=== PATIENT | female | born 1955 | race Two or more races ===

== ENCOUNTER 2023-01-06 12:42 | Inpatient (IN) | payer OTHER, BC ==
[2023-01-06 13:08] VITALS: BMI 26.6
[2023-01-06] MEDS ORDERED: IBUPROFEN 400 MG TABLET (FP) PO PRN (13:59)
[2023-01-06] MEDS ORDERED: guaiFENesin 600 MG TABLET.ER (FP) PO PRN (13:59)
[2023-01-06] MEDS ORDERED: ACETAMINOPHEN 325 MG TABLET (FP) PO PRN (13:59)
[2023-01-06] MEDS ORDERED: NALOXONE HCL (KLOXXADO) 8 MG SPRAY NS PRN (13:59)
[2023-01-06] MEDS ORDERED: POLYETHYLENE GLYCOL (HEALTHYLAX) 3350 17 GM PACKET PO PRN (13:59)
[2023-01-06] MEDS ORDERED: LOPERAMIDE HCL 2 MG CAPSULE PO PRN (13:59)
[2023-01-06] MEDS ORDERED: BENZONATATE 200 MG CAPSULE PO PRN (13:59)
[2023-01-06] MEDS ORDERED: IBUPROFEN 600 MG TABLET (FP) PO PRN (13:59)
[2023-01-06] MEDS ORDERED: MAG HYDROX/AL HYDROX/SIMETH 30 ML UNIT-DOSE CUP PO PRN (13:59)
[2023-01-06] MEDS ORDERED: NICOTINE POLACRILEX 4 MG GUM BUC PRN (13:59)
[2023-01-06] MEDS ORDERED: BENZOCAINE/MENTHOL (CHLORASEPTIC ) LOZENGE MM PRN (13:59)
[2023-01-06] MEDS ORDERED: NALOXONE HCL 0.4 MG/ML VIAL IM PRN (13:59)
[2023-01-06] MEDS ORDERED: COLLOIDAL OATMEAL 1 BAR EACH TP PRN (13:59)
[2023-01-06] MEDS ORDERED: MAGNESIUM HYDROX 2400MG/30ML ORAL SUSPENSION 30 ML CUP PO PRN (13:59)
[2023-01-06] MEDS ORDERED: ALBUTEROL SO4 HFA INHALER IH PRN (15:03)
[2023-01-06] MEDS: NICOTINE 21 MG/24 HOURS TOPICAL PATCH TD SCH (17:33)
[2023-01-06] MEDS: PRENATAL VITAMINS W/ FOLIC ACID TABLET (FP) PO SCH (17:33)
[2023-01-06] MEDS: MECLIZINE HCL 25 MG TABLET (FP) PO SCH ×2 (18:01→21:26)
[2023-01-06] MEDS: THIAMINE HCL 100 MG TABLET (FP) PO SCH (21:24)
[2023-01-06] MEDS: QUEtiapine FUMARATE 100 MG TABLET (FP) PO SCH (21:24)
[2023-01-06] MEDS: ATORVASTATIN CA 20 MG TABLET (FP) PO SCH (21:24)
[2023-01-06] MEDS: propRANOLol HCL 10 MG TABLET PO SCH (21:24)
[2023-01-06] MEDS: MELATONIN 5 MG TABLETS PO SCH (21:25)
[2023-01-07] MEDS: PRENATAL VITAMINS W/ FOLIC ACID TABLET (FP) PO SCH (10:05)
[2023-01-07] MEDS: amLODIPine BESYLATE 5 MG TABLET (FP) PO SCH (10:05)
[2023-01-07] MEDS: propRANOLol HCL 10 MG TABLET PO SCH ×3 (10:05→23:22)
[2023-01-07] MEDS: predniSONE 20 MG TABLET (UD) PO SCH (10:05)
[2023-01-07] MEDS: MECLIZINE HCL 25 MG TABLET (FP) PO SCH ×4 (10:05→21:09)
[2023-01-07] MEDS: NICOTINE 21 MG/24 HOURS TOPICAL PATCH TD SCH (10:06)
[2023-01-07 10:15] LABS: CHLORIDE 110 mmol/L (98-107); POTASSIUM 4.3 mmol/L (3.5-5.1); SODIUM 140 mmol/L (136-145)
[2023-01-07 10:25] LABS: ANION GAP 5 mmol/L (4-13); BLOOD UREA NITROGEN 11.8 mg/dL (7-18); CALCIUM 8.6 mg/dL (8.5-10.1); CO2 25 mmol/L (21-32); GLUCOSE,RANDOM 111 mg/dL (74-106)
[2023-01-07 10:26] LABS: ALBUMIN 3.2 g/dl (3.4-5.0)
[2023-01-07 10:28] LABS: CREATININE 0.9 mg/dL (0.55-1.3); SGOT/AST 23 U/L (15-37); SGPT/ALT 34 U/L (13-61)
[2023-01-07 10:30] LABS: BILIRUBIN,TOTAL 0.8 mg/dL (0.2-1); TOT PROT 6.2 g/dl (6.4-8.2)
[2023-01-07 10:31] LABS: ALK PHOS 107 U/L (45-117)
[2023-01-07 10:39] LABS: HEMATOCRIT 40.2 % (32.4-45.2); HEMOGLOBIN 13.2 GM/dL (10.7-15.3); MCH 28.1 pg (25.7-33.7); MCHC 32.9 g/dl (32.0-36.0); MEAN CELL VOLUME 85.5 fl (80-96); MEAN PLT VOLUME 8.3 fl (7.5-11.1); PLATELET COUNT 306 10^3/uL (134-434); RDW 15.6 % (11.6-15.6); WHITE BLOOD COUNT 8.4 K/mm3 (4.0-10.0)
[2023-01-07 11:39] LABS: SYPHILIS W/ RPR CONF NON-REACTIVE (NONREACTIVE)
[2023-01-07 14:09] LABS: URINE APPEARANCE CLEAR; URINE BILIRUBIN NEGATIVE (NEGATIVE); URINE COLOR YELLOW; URINE GLUCOSE (UA) NEGATIVE (NEGATIVE); URINE KETONE TRACE (NEGATIVE); URINE LEUK ESTERASE NEGATIVE (NEGATIVE); URINE NITRITE NEGATIVE (NEGATIVE); URINE PROTEIN NEGATIVE (NEGATIVE); URINE UROBILINOGEN 0.2 mg/dL (0.2-1.0)
[2023-01-07] MEDS: ATORVASTATIN CA 20 MG TABLET (FP) PO SCH (21:08)
[2023-01-07] MEDS: QUEtiapine FUMARATE 100 MG TABLET (FP) PO SCH (21:08)
[2023-01-07] MEDS: THIAMINE HCL 100 MG TABLET (FP) PO SCH (21:08)
[2023-01-07] MEDS: MELATONIN 5 MG TABLETS PO SCH (21:08)
[2023-01-08] MEDS: propRANOLol HCL 10 MG TABLET PO SCH ×3 (06:06→22:27)
[2023-01-08] MEDS: hydrOXYzine PAMOATE 25 MG CAPSULE (FP) PO PRN (07:02)
[2023-01-08] MEDS: amLODIPine BESYLATE 5 MG TABLET (FP) PO SCH (09:48)
[2023-01-08] MEDS: MECLIZINE HCL 25 MG TABLET (FP) PO SCH ×4 (09:48→21:15)
[2023-01-08] MEDS: predniSONE 20 MG TABLET (UD) PO SCH (09:48)
[2023-01-08] MEDS: PRENATAL VITAMINS W/ FOLIC ACID TABLET (FP) PO SCH (09:49)
[2023-01-08] MEDS: NICOTINE 21 MG/24 HOURS TOPICAL PATCH TD SCH (09:50)
[2023-01-08] MEDS: QUEtiapine FUMARATE 100 MG TABLET (FP) PO SCH (21:15)
[2023-01-08] MEDS: MELATONIN 5 MG TABLETS PO SCH (21:15)
[2023-01-08] MEDS: ATORVASTATIN CA 20 MG TABLET (FP) PO SCH (21:15)
[2023-01-08] MEDS: THIAMINE HCL 100 MG TABLET (FP) PO SCH (21:15)
[2023-01-09] MEDS: propRANOLol HCL 10 MG TABLET PO SCH ×3 (07:03→21:40)
[2023-01-09] MEDS: PRENATAL VITAMINS W/ FOLIC ACID TABLET (FP) PO SCH (09:43)
[2023-01-09] MEDS: NICOTINE 21 MG/24 HOURS TOPICAL PATCH TD SCH (09:44)
[2023-01-09] MEDS: predniSONE 20 MG TABLET (UD) PO SCH (09:44)
[2023-01-09] MEDS: MECLIZINE HCL 25 MG TABLET (FP) PO SCH ×4 (09:44→22:24)
[2023-01-09] MEDS: amLODIPine BESYLATE 5 MG TABLET (FP) PO SCH (09:45)
[2023-01-09] MEDS: ATORVASTATIN CA 20 MG TABLET (FP) PO SCH (21:40)
[2023-01-09] MEDS: THIAMINE HCL 100 MG TABLET (FP) PO SCH (21:40)
[2023-01-09] MEDS: QUEtiapine FUMARATE 100 MG TABLET (FP) PO SCH (21:40)
[2023-01-09] MEDS: MELATONIN 5 MG TABLETS PO SCH (21:40)
[2023-01-10] MEDS: propRANOLol HCL 10 MG TABLET PO SCH ×3 (06:18→21:21)
[2023-01-10] MEDS: hydrOXYzine PAMOATE 25 MG CAPSULE (FP) PO PRN ×2 (07:56→21:23)
[2023-01-10] MEDS: PRENATAL VITAMINS W/ FOLIC ACID TABLET (FP) PO SCH (09:53)
[2023-01-10] MEDS: predniSONE 20 MG TABLET (UD) PO SCH (09:54)
[2023-01-10] MEDS: amLODIPine BESYLATE 5 MG TABLET (FP) PO SCH (09:54)
[2023-01-10] MEDS: NICOTINE 21 MG/24 HOURS TOPICAL PATCH TD SCH (09:54)
[2023-01-10] MEDS: MECLIZINE HCL 25 MG TABLET (FP) PO SCH ×4 (09:54→21:26)
[2023-01-10] MEDS ORDERED: hydrOXYzine PAMOATE 25 MG CAPSULE (FP) PO ONE (11:15)
[2023-01-10] MEDS: OLANZapine 5 MG TABLET PO SCH (11:24)
[2023-01-10] MEDS: THIAMINE HCL 100 MG TABLET (FP) PO SCH (21:21)
[2023-01-10] MEDS: ATORVASTATIN CA 20 MG TABLET (FP) PO SCH (21:22)
[2023-01-10] MEDS: QUEtiapine FUMARATE 100 MG TABLET (FP) PO SCH (21:22)
[2023-01-10] MEDS: MELATONIN 5 MG TABLETS PO SCH (21:22)
[2023-01-10] MEDS: BENZTROPINE MESYLATE 1 MG TABLET PO SCH (21:26)
[2023-01-10] MEDS: OLANZapine 10 MG TABLET PO SCH (21:29)
[2023-01-11] MEDS: propRANOLol HCL 10 MG TABLET PO SCH ×3 (07:17→21:56)
[2023-01-11] MEDS: PRENATAL VITAMINS W/ FOLIC ACID TABLET (FP) PO SCH (09:43)
[2023-01-11] MEDS: NICOTINE 21 MG/24 HOURS TOPICAL PATCH TD SCH (09:43)
[2023-01-11] MEDS: MECLIZINE HCL 25 MG TABLET (FP) PO SCH ×4 (09:44→21:13)
[2023-01-11] MEDS: predniSONE 20 MG TABLET (UD) PO SCH (09:44)
[2023-01-11] MEDS: amLODIPine BESYLATE 5 MG TABLET (FP) PO SCH (09:44)
[2023-01-11] MEDS: BENZTROPINE MESYLATE 1 MG TABLET PO SCH ×2 (09:44→21:14)
[2023-01-11] MEDS: hydrOXYzine PAMOATE 25 MG CAPSULE (FP) PO PRN (09:45)
[2023-01-11] MEDS: OLANZapine 5 MG TABLET PO SCH (10:52)
[2023-01-11] MEDS: MELATONIN 5 MG TABLETS PO SCH (21:12)
[2023-01-11] MEDS: THIAMINE HCL 100 MG TABLET (FP) PO SCH (21:13)
[2023-01-11] MEDS: ATORVASTATIN CA 20 MG TABLET (FP) PO SCH (21:13)
[2023-01-11] MEDS: OLANZapine 10 MG TABLET PO SCH (21:56)
[2023-01-12] MEDS: propRANOLol HCL 10 MG TABLET PO SCH ×3 (06:38→21:28)
[2023-01-12 07:39] VITALS: RESP 18
[2023-01-12] MEDS: predniSONE 20 MG TABLET (UD) PO SCH (09:42)
[2023-01-12] MEDS: PRENATAL VITAMINS W/ FOLIC ACID TABLET (FP) PO SCH (09:42)
[2023-01-12] MEDS: MECLIZINE HCL 25 MG TABLET (FP) PO SCH ×4 (09:42→21:28)
[2023-01-12] MEDS: NICOTINE 21 MG/24 HOURS TOPICAL PATCH TD SCH (09:43)
[2023-01-12] MEDS: amLODIPine BESYLATE 5 MG TABLET (FP) PO SCH (09:43)
[2023-01-12] MEDS: BENZTROPINE MESYLATE 1 MG TABLET PO SCH ×2 (09:43→21:28)
[2023-01-12] MEDS: OLANZapine 5 MG TABLET PO SCH (09:45)
[2023-01-12 14:17] LABS: HIV INTERPRETATION NEGATIVE (NEGATIVE)
[2023-01-12] MEDS: ATORVASTATIN CA 20 MG TABLET (FP) PO SCH (21:28)
[2023-01-12] MEDS: OLANZapine 10 MG TABLET PO SCH (21:28)
[2023-01-12] MEDS: MELATONIN 5 MG TABLETS PO SCH (21:29)
[2023-01-12] MEDS: THIAMINE HCL 100 MG TABLET (FP) PO SCH (21:29)
[2023-01-13] MEDS: propRANOLol HCL 10 MG TABLET PO SCH (06:02)
[2023-01-13 07:47] VITALS: TEMP 97.8
[2023-01-13] MEDS: PRENATAL VITAMINS W/ FOLIC ACID TABLET (FP) PO SCH (09:30)
[2023-01-13] MEDS: MECLIZINE HCL 25 MG TABLET (FP) PO SCH (09:31)
[2023-01-13] MEDS: predniSONE 20 MG TABLET (UD) PO SCH (09:31)
[2023-01-13] MEDS: amLODIPine BESYLATE 5 MG TABLET (FP) PO SCH (09:31)
[2023-01-13] MEDS: OLANZapine 5 MG TABLET PO SCH (09:32)
[2023-01-13] MEDS: BENZTROPINE MESYLATE 1 MG TABLET PO SCH (09:32)
[2023-01-13 09:42] VITALS: BP 138/64; PULSE 51
== END 2023-01-13 09:35 | disposition home or self-care (01) | DRG 895 ==
LOC: YASAS 12:42 → Y5N 16:22
PROVIDERS: ADMIT Allergy & Immunology; ATTEND Psychiatry & Neurology Pain Medicine
PROC: HZ42ZZZ Group Counseling for Substance Abuse Treatment, Cognitive-Behavioral (ICD-10-PCS; principal; 2023-01-06)
DX: F10.20 Alcohol dependence, uncomplicated (principal); F14.20 Cocaine dependence, uncomplicated; F17.210 Nicotine dependence, cigarettes, uncomplicated; F25.9 Schizoaffective disorder, unspecified; F41.9 Anxiety disorder, unspecified; F32.A Depression, unspecified; E78.5 Hyperlipidemia, unspecified; I10 Essential (primary) hypertension
CPT/HCPCS: 36415; 71046-TC-FY; 80053; 80307; 81003; 85027; 86780; 86803; 87389

== ENCOUNTER 2023-11-03 14:51 | Inpatient (IN) | payer MEDICARE, OTHER ==
[2023-11-03 15:23] VITALS: BMI 24.1
[2023-11-03] MEDS ORDERED: NALOXONE HCL 0.4 MG/ML VIAL IM PRN (15:57)
[2023-11-03] MEDS ORDERED: MAGNESIUM HYDROX 2400MG/30ML ORAL SUSPENSION 30 ML CUP PO PRN (15:57)
[2023-11-03] MEDS ORDERED: IBUPROFEN 400 MG TABLET (FP) PO PRN (15:57)
[2023-11-03] MEDS ORDERED: IBUPROFEN 600 MG TABLET (FP) PO PRN (15:57)
[2023-11-03] MEDS ORDERED: NICOTINE POLACRILEX 2 MG LOZENGE BC PRN (15:57)
[2023-11-03] MEDS ORDERED: NICOTINE POLACRILEX 2 MG GUM BUC PRN (15:57)
[2023-11-03] MEDS ORDERED: NALOXONE (NARCAN) HCL 4 MG/0.1 ML SPRAY NS PRN (15:57)
[2023-11-03] MEDS ORDERED: MAG HYDROX/AL HYDROX/SIMETH 30 ML UNIT-DOSE CUP PO PRN (15:57)
[2023-11-03] MEDS ORDERED: LOPERAMIDE HCL 2 MG CAPSULE PO PRN (15:57)
[2023-11-03] MEDS ORDERED: BENZONATATE 200 MG CAPSULE PO PRN (15:57)
[2023-11-03] MEDS ORDERED: POLYETHYLENE GLYCOL (HEALTHYLAX) 3350 17 GM PACKET PO PRN (15:57)
[2023-11-03] MEDS ORDERED: guaiFENesin 600 MG TABLET.ER (FP) PO PRN (15:57)
[2023-11-03] MEDS ORDERED: BENZOCAINE/MENTHOL (CHLORASEPTIC ) LOZENGE MM PRN (15:57)
[2023-11-03] MEDS ORDERED: ACETAMINOPHEN 325 MG TABLET (FP) PO PRN (15:57)
[2023-11-03] MEDS ORDERED: TUBERCULIN PPD 5 TU/0.1ML VIAL ID ONE (20:33)
[2023-11-03] MEDS: TUBERCULIN PPD 5 TU/0.1ML SYRINGE (IN PATIENT USE ONLY) ID ONE (20:39)
[2023-11-03] MEDS: THIAMINE 100 MG TABLET PO SCH (21:48)
[2023-11-03] MEDS: MELATONIN 5 MG TABLETS PO SCH (21:48)
[2023-11-03] MEDS: hydrOXYzine PAMOATE 25 MG CAPSULE (FP) PO PRN (21:49)
[2023-11-03] MEDS: PRENATAL VITAMINS W/ FOLIC ACID TABLET (FP) PO SCH (21:50)
[2023-11-04] MEDS: hydrOXYzine PAMOATE 50 MG CAPSULE (FP) PO ONE (12:14)
[2023-11-04] MEDS: ARIPiprazole 10 MG TABLET PO SCH (12:14)
[2023-11-04] MEDS: QUEtiapine FUMARATE 200 MG TABLET PO SCH (21:37)
[2023-11-04] MEDS: BENZTROPINE MESYLATE 1 MG TABLET PO SCH (21:37)
[2023-11-04] MEDS: PRAZOSIN HCL 1 MG CAPSULE PO SCH (21:37)
[2023-11-05 07:13] VITALS: RESP 18
[2023-11-06 06:41] VITALS: BP 125/75; PULSE 69; TEMP 97.5
== END 2023-11-06 13:50 | disposition home or self-care (01) | DRG 895 ==
LOC: YASAS 14:51 → Y5N 18:50
PROVIDERS: ADMIT Allergy & Immunology; ATTEND Psychiatry & Neurology Pain Medicine
PROC: HZ42ZZZ Group Counseling for Substance Abuse Treatment, Cognitive-Behavioral (ICD-10-PCS; principal; 2023-11-03)
DX: F14.20 Cocaine dependence, uncomplicated (principal); F17.210 Nicotine dependence, cigarettes, uncomplicated; F25.9 Schizoaffective disorder, unspecified; F41.9 Anxiety disorder, unspecified; F32.A Depression, unspecified; I10 Essential (primary) hypertension; J45.909 Unspecified asthma, uncomplicated; E78.5 Hyperlipidemia, unspecified; Z86.59 Personal history of other mental and behavioral disorders; Z88.8 Allergy status to other drugs, medicaments and biological substances
CPT/HCPCS: 80305; 80307; 87811